=== PATIENT | female | born 1990 | race Caucasian/White ===

== ENCOUNTER 2017-11-11 20:01 | Emergency (ER) | payer SELFPAY ==
[2017-11-11 20:09] VITALS: TEMP 99.6
--- NOTE | 2017-11-11 21:08 | ED PDOC ---
Arrival/HPI - General Chief Complaint: Abdominal Pain Time Seen by Provider: 11/11/17 20:06 Historian: Patient - History of Present Illness Narrative History of Present Illness (Text): 11/11/17 21:06 A 27 year old female, with no significant past medical history, presents to the emergency department with a complaint of 1 day duration right lower quadrant abdominal pain. The patient states that the pain began yesterday and is not associated with any other symptoms. The patient denies fevers, chills, headache , dizziness, nausea, vomiting, diarrhea, bowel/urinary changes, back pain, neck pain, chest pain, shortness of breath, dyspnea on exertion, cough or any other complaint. Time/Duration: Other (Yesterday) Symptom Onset: Sudden Symptom Course: Unchanged Activities at Onset: Rest, Light Context: Home Past Medical History - Provider Review Nursing Documentation Reviewed: Yes - Infectious Disease Hx of Infectious Diseases: None - Tetanus Immunization Tetanus Immunization: Up to Date - Past Medical History Past Medical History: No Previous - Cardiac Hx Cardiac Disorders: No - Pulmonary Hx Respiratory Disorders: No - Neurological Hx Neurological Disorder: No - HEENT Hx HEENT Disorder: No - Renal Hx Renal Disorder: No - Endocrine/Metabolic Hx Endocrine Disorders: No - Hematological/Oncological Hx Blood Disorders: No - Integumentary Hx Dermatological Disorder: No - Musculoskeletal/Rheumatological Hx Musculoskeletal Disorders: No - Gastrointestinal Hx Gastrointestinal Disorders: No - Genitourinary/Gynecological Hx Genitourinary Disorders: Yes Hx Urinary Tract Infection: Yes - Psychiatric Hx Psychophysiologic Disorder: Yes Hx Depression: Yes Hx Substance Use: No - Surgical History Hx Tonsillectomy: Yes - Anesthesia Hx Anesthesia: No Hx Anesthesia Reactions: No Hx Malignant Hyperthermia: No - Suicidal Assessment Feels Threatened In Home Enviroment: No Family/Social History - Physician Review Nursing Documentation Reviewed: Yes Family/Social History: No Known Family HX Smoking Status: Current Some Days Smoker Hx Alcohol Use: Yes Frequency of alcohol use: Socially Hx Substance Use: No Hx Substance Use Treatment: No Allergies/Home Meds Allergies/Adverse Reactions: Allergies No Known Allergies Allergy (Verified 06/13/13 22:34) Review of Systems - Physician Review All systems were reviewed & negative as marked: Yes - Review of Systems Constitutional: absent: Fevers, Night Sweats Respiratory: absent: SOB, Cough Cardiovascular: absent: Chest Pain, ELLIOTT Gastrointestinal: Abdominal Pain (Right lower quadrant abdominal pain). absent : Stool Changes, Diarrhea, Nausea, Vomiting Genitourinary Female: absent: Urine Output Changes Musculoskeletal: absent: Back Pain, Neck Pain Neurological: absent: Headache, Dizziness Physical Exam Vital Signs Reviewed: Yes Vital Signs Temp Pulse Resp BP Pulse Ox 11/12/17 00:36 82 18 99 11/11/17 23:24 71 18 124/61 97 11/11/17 20:02 99.6 F 90 16 131/87 99 Temperature: Afebrile Blood Pressure: Normal Pulse: Regular Respiratory Rate: Normal Appearance: Positive for: Well-Appearing, Non-Toxic, Comfortable Pain Distress: None Mental Status: Positive for: Alert and Oriented X 3 - Systems Exam Head: Present: Atraumatic, Normocephalic Pupils: Present: PERRL Extroacular Muscles: Present: EOMI Conjunctiva: Present: Normal Mouth: Present: Moist Mucous Membranes Neck: Present: Normal Range of Motion Respiratory/Chest: Present: Clear to Auscultation, Good Air Exchange. No: Respiratory Distress, Accessory Muscle Use Cardiovascular: Present: Regular Rate and Rhythm, Normal S1, S2. No: Murmurs Abdomen: Present: Tenderness (Right lower quadrant tenderness.). No: Distention , Peritoneal Signs Back: Present: Normal Inspection Upper Extremity: Present: Normal Inspection. No: Cyanosis, Edema Lower Extremity: Present: Normal Inspection. No: Edema Neurological: Present: GCS=15, CN II-XII Intact, Speech Normal Skin: Present: Warm, Dry, Normal Color. No: Rashes Psychiatric: Present: Alert, Oriented x 3, Normal Insight, Normal Concentration Medical Decision Making ED Course and Treatment: 11/11/17 21:09 Impression: A 27 year old female presents to the emergency department with 1 day duration right lower quadrant abdominal pain. Plan: -- Transvaginal Ultrasound -- Urinalysis -- Labs -- Reassess and disposition Progress Notes: EXAM: US Pelvis Complete, Transabdominal. US Pelvis, Transvaginal. Dictated and Authenticated by: Eddie Waite MD 11/11/2017 9:23 PM Eastern Time ([place] & [place]) IMPRESSION: Normal pelvic ultrasound. EXAM: CT Abdomen and Pelvis With Intravenous Contrast Dictated and Authenticated by: Eddie Waite MD 11/11/2017 11:30 PM Eastern Time ([place] & [place]) IMPRESSION: 1. There is mild thickening of the right ureter which can be seen with urinary tract infections. Correlation with urinalysis would be helpful. 2. Recently ruptured right ovarian cyst or follicle. 11/12/17 00:14 On re-evaluation, patient feels better and is in no acute distress. I have discussed the results and plan with the patient, who expresses understanding. Patient in agreement with plan to be discharged home. Patient is stable for discharge. Patient was instructed to follow up with physician or return if symptoms worsen or new concerning symptoms arise. - Lab Interpretations Lab Results: 11/11/17 21:10 11/11/17 21:10 Lab Results 11/11/17 21:10: Urine Color Light yellow, Urine Appearance Sl cloudy, Urine pH 6.5, Ur Specific [place] 1.015, Urine Protein 100 H, Urine Glucose (UA) Negative , Urine Ketones Negative, Urine Blood Moderate H, Urine Nitrate Negative, Urine Bilirubin Negative, Urine Urobilinogen 1.0 H, Ur Leukocyte Esterase Large H, Urine RBC 5 - 10, Urine WBC 15 - 20, Ur Epithelial Cells 0 - 2, Urine Bacteria Mod 11/11/17 21:10: Sodium 141, Potassium 3.7, Chloride 102, Carbon Dioxide 33, Anion Gap 10, BUN 14, Creatinine 0.7, Est GFR ( Amer) > 60, Est GFR (Non- Af Amer) > 60, Random Glucose 103, Calcium 9.2, Total Bilirubin 0.8, AST 24, ALT 42, Alkaline Phosphatase 40, Total Protein 7.1, Albumin 4.2, Globulin 2.9, Albumin/Globulin Ratio 1.5 11/11/17 21:10: WBC 12.9 H, RBC 4.23, Hgb 13.0, Hct 39.5, MCV 93.4, MCH 30.7, MCHC 32.9, RDW 12.9, Plt Count 321, MPV 9.0, Gran % 70.7 H, Lymph % (Auto) 15.8 L, [place] % (Auto) 12.7 H, Eos % (Auto) 0.7 L, Baso % (Auto) 0.1, Gran # 9.11 H, Lymph # (Auto) 2.0, [place] # (Auto) 1.6 H, Eos # (Auto) 0.1, Baso # (Auto) 0.01 - RAD Interpretation Radiology Orders: 11/11/17 20:31 TRANSVAGINAL [US] Stat 11/11/17 21:30 ABD & PELVIS IV CONTRAST ONLY [CT] Stat - Medication Orders Current Medication Orders: Discontinued Medications Cephalexin Monohydrate (Keflex) 500 mg PO STAT STA PRN Reason: Protocol Stop: 11/11/17 23:38 Last Admin: 11/12/17 00:17 Dose: 500 mg - Scribe Statement The provider has reviewed the documentation as recorded by the Rebeccaibashley Jain Provider Scribe Attestation: All medical record entries made by the Scribe were at my direction and personally dictated by me. I have reviewed the chart and agree that the record accurately reflects my personal performance of the history, physical exam, medical decision making, and the department course for this patient. I have also personally directed, reviewed, and agree with the discharge instructions and disposition Disposition/Present on Arrival - Present on Arrival Any Indicators Present on Arrival: No History of DVT/PE: No History of Uncontrolled Diabetes: No Urinary Catheter: No History of Decub. 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
[2017-11-11 21:29] LABS: ALB/GLOB RATIO 1.5 (1.1-1.8); ALBUMIN 4.2 g/dL (3.0-4.8); ALT/SGPT 42 U/L (7-56); AST/SGOT 24 U/L (14-36); BLOOD UREA NITROGEN 14 mg/dL (7-21); CALCIUM 9.2 mg/dL (8.4-10.5); GFR AFRICAN-AMERICAN > 60; GFR NON-AFRICAN AMERICAN > 60
[2017-11-11 21:34] LABS: BASO # 0.01 K/mm3 (0.0-2.0); BASO % 0.1 % (0.0-3.0); EOS # 0.1 (0.0-0.7); EOS % 0.7 % (1.5-5.0); GRAN # 9.11 (1.4-6.5); GRAN % 70.7 % (50.0-68.0); LYMPH % 15.8 % (22.0-35.0); MEAN CELL VOLUME 93.4 fl (80.0-105.0); MEAN CORPUSCULAR HEMOGLOBIN 30.7 pg (25.0-35.0); MEAN CORPUSCULAR HGB CONC 32.9 g/dl (31.0-37.0); MONO # 1.6 (0.1-0.6); MONO % 12.7 % (1.0-6.0); RBC 4.23 10^6/uL (3.5-6.1); RED CELL DISTRIBUTION WIDTH 12.9 % (11.5-14.5); WHITE BLOOD COUNT 12.9 10^3/ul (4.5-11.0)
[2017-11-11 21:36] LABS: PH,URINE 6.5 (4.7-8.0); URINE BILIRUBIN NEGATIVE (NEGATIVE); URINE BLOOD MODERATE (NEGATIVE); URINE GLUCOSE (UA) NEGATIVE (NEGATIVE); URINE LEUKOCYTE ESTERASE LARGE Leu/uL (NEGATIVE); URINE PROTEIN 100 mg/dL (<30 mg/dL)
[2017-11-11 21:37] LABS: URINE APPEARANCE SL CLOUDY (CLEAR); URINE COLOR LIGHT YELLOW (YELLOW)
[2017-11-11 21:50] LABS: URINE BACTERIA MOD (NEG); URINE EPITHELIAL CELLS 0 - 2 /hpf (0-5); URINE WBC 15 - 20 /hpf (0-6)
[2017-11-11] MEDS ORDERED: Iohexol 350 MG/100 ML VIAL ONE (22:21)
[2017-11-11 23:24] VITALS: BP 124/61; RESP 18
[2017-11-12 00:37] VITALS: PULSE 82; O2SAT 99
--- NOTE | 2017-11-12 09:37 | CT ---
Date of service: 11/11/2017 PROCEDURE: CT Abdomen and Pelvis with contrast HISTORY: rlq pain COMPARISON: None. TECHNIQUE: Contrast dose: 100 cc of Omni 350 Radiation dose: Total exam DLP = 512 mGy-cm. This CT exam was performed using one or more of the following dose reduction techniques: Automated exposure control, adjustment of the mA and/or kV according to patient size, and/or use of iterative reconstruction technique. FINDINGS: LOWER THORAX: Unremarkable. LIVER: Unremarkable. No gross lesion or ductal dilatation. GALLBLADDER AND BILE DUCTS: Unremarkable. PANCREAS: Unremarkable. No gross lesion or ductal dilatation. SPLEEN: Unremarkable. ADRENALS: Unremarkable. No mass. KIDNEYS AND URETERS: Unremarkable. No hydronephrosis. No solid mass. There is mild mural enhancement of the right renal collecting system and right ureter. This can be seen in urinary tract infections VASCULATURE: Unremarkable. No aortic aneurysm. BOWEL: Unremarkable. No obstruction. No gross mural thickening. APPENDIX: Normal appendix. PERITONEUM: Unremarkable. No free fluid. No free air. LYMPH NODES: Unremarkable. No enlarged lymph nodes. BLADDER: Unremarkable. REPRODUCTIVE: There is a thick-walled irregular collapsing cyst in the right ovary. There is a small amount of free fluid in the cul-de-sac BONES: No acute fracture. OTHER FINDINGS: None. IMPRESSION: There is mild mural enhancement of the right renal collecting system and right ureter. This can be seen in urinary tract infections There is a thick-walled irregular collapsing cyst in the right ovary. There is a small amount of free fluid in the cul-de-sac
--- NOTE | 2017-11-12 11:12 | US ---
Date of service: 11/11/2017 HISTORY: Right lower quadrant pain COMPARISON: None available. TECHNIQUE: Transvaginal pelvic ultrasound was performed. FINDINGS: UTERUS: Measures 8.4 x 4.9 x 5.4 cm. Anteverted, normal in size and appearance. No fibroid or other mass lesion seen. ENDOMETRIUM: Measures 12 mm in diameter. The central endometrial echo complex is normal in appearance. CERVIX: No cervical abnormality identified. RIGHT OVARY: Measures 4.3 x 2.3 x 2.0 cm. No solid mass. Normal flow. LEFT OVARY: Measures 2.3 x 1.7 x 1.7 cm. No solid mass. Normal flow. FREE FLUID: No significant free fluid noted. OTHER FINDINGS: None. IMPRESSION: Normal pelvic ultrasound. A preliminary report was provided by [employer] services.
== END 2017-11-12 00:36 | disposition home or self-care (01) ==
LOC: ED 20:01
DX: N39.0 Urinary tract infection, site not specified (principal); N83.201 Unspecified ovarian cyst, right side
CPT/HCPCS: 74177; 76830; 80053; 81001; 85025; 87086; 87181; 99283; Q9967

== ENCOUNTER 2018-07-17 16:32 | Emergency (ER) | payer BC, OTHER ==
[2018-07-17 16:58] VITALS: BMI 29.2
[2018-07-17] MEDS ORDERED: Sodium Chloride 0.9% 1,000 ML IV STA ×2 (17:01→19:47)
[2018-07-17 17:28] LABS: BASO # 0.01 K/mm3 (0.0-2.0); BASO % 0.1 % (0.0-3.0); HEMOGLOBIN 13.9 g/dL (12.0-16.0); LYMPH # 0.9 (1.2-3.4); MEAN CELL VOLUME 93.3 fl (80.0-105.0); MEAN CORPUSCULAR HEMOGLOBIN 30.1 pg (25.0-35.0); MEAN CORPUSCULAR HGB CONC 32.3 g/dl (31.0-37.0); MEAN PLATELET VOLUME 8.8 fl (7.0-11.0); MONO # 1.1 (0.1-0.6); MONO % 5.8 % (1.0-6.0); PLATELET COUNT 329 10^3/uL (120.0-450.0); RBC 4.62 10^6/uL (3.5-6.1); RED CELL DISTRIBUTION WIDTH 12.9 % (11.5-14.5)
[2018-07-17 17:38] LABS: INR 1.19; PARTIAL THROMBOPLASTIN TIME 28.3 Seconds (26.9-38.3); PROTHROMBIN TIME 13.2 SECONDS (9.4-12.5)
[2018-07-17 17:43] LABS: LYMPHOCYTE 6 % (22.0-35.0); MONOCYTE 7 % (1.0-6.0); NEUTROPHIL 87 % (50.0-70.0)
[2018-07-17 17:44] LABS: PLATELET ESTIMATE NORMAL (NORMAL)
[2018-07-17 18:01] LABS: ALB/GLOB RATIO 1.4 (1.1-1.8); ALBUMIN 4.7 g/dL (3.0-4.8); ALT/SGPT 20 U/L (7-56); AST/SGOT 29 U/L (14-36); BLOOD UREA NITROGEN 19 mg/dL (7-21); CALCIUM 9.4 mg/dL (8.4-10.5); GFR NON-AFRICAN AMERICAN > 60; LIPASE 16 U/L (23-300)
--- NOTE | 2018-07-17 18:04 | US ---
Date of service: 07/17/2018 HISTORY: Vaginal bleeding, pain. LMP 07/17/2018. Regular cycles by history. COMPARISON: 11/11/2017. Pelvic ultrasound TECHNIQUE: Transvaginal only. Real -time technique with 2D, duplex and color Doppler FINDINGS: UTERUS: Measures 4.4 x 5.3 x 7.4 cm. Normal in size and appearance. No fibroid or other mass lesion seen. ENDOMETRIUM: Measures 7.5 mm in diameter. No ultrasound findings to suggest gestational sac, fluid, debris, mass or polyp or other pathologic process within the endometrium. CERVIX: Trace fluid in the endometrial canal. RIGHT OVARY: Measures 3.5 x 1.7 x 3.1 cm. No solid mass. Normal flow. Multiple subcentimeter follicles. LEFT OVARY: Measures 1.8 x 2.9 x 3.1 cm. No solid mass. Normal flow. Multiple subcentimeter follicles. FREE FLUID: No significant free fluid noted. OTHER FINDINGS: None. IMPRESSION: Trace fluid in the cervix, cervical canal. Findings are likely bladder hemorrhagic products. Unremarkable uterus, endometrial echo complex and adnexa.
[2018-07-17 18:46] VITALS: TEMP 97.7
[2018-07-17 18:54] LABS: URINE BILIRUBIN NEGATIVE (NEGATIVE); URINE BLOOD NEGATIVE (NEGATIVE); URINE GLUCOSE (UA) NEGATIVE (NEGATIVE); URINE LEUKOCYTE ESTERASE NEGATIVE Leu/uL (NEGATIVE); URINE PROTEIN 30 mg/dL (<30 mg/dL); URINE UROBILINOGEN 0.2 E.U./dL (<1 E.U./dL)
[2018-07-17 18:55] LABS: URINE APPEARANCE CLEAR (CLEAR); URINE COLOR YELLOW (YELLOW)
[2018-07-17 18:58] LABS: URINE BACTERIA TRACE /hpf; URINE RBC 0 - 2 /hpf (0-2)
[2018-07-17] MEDS ORDERED: Iohexol 350 MG/100 ML VIAL ONE (20:22)
--- NOTE | 2018-07-17 21:57 | ED PDOC ---
Arrival/HPI - General Chief Complaint: GI Problem Time Seen by Provider: 07/17/18 16:37 Historian: Patient - History of Present Illness Narrative History of Present Illness (Text): 28 year old female was past medical history of ovarian cysts and painful periods presents to the emergency department complaining of lower abdominal pain and vomiting x 1 day. Patient states these symptoms are typical during her menstrual cycle however today was more severe prompting visit to the emergency department. Patient has been unable to tolerate po secondary to nausea and has therefore been feeling intermittently lightheaded. Currently menstruating. Denies fever, chills, diarrhea, chest pain, shortness of breath, vision changes, neck pain or stiffness, hematemesis, melena, urinary symptoms, or any other associated complaints. Past Medical History - Provider Review Nursing Documentation Reviewed: Yes - Infectious Disease Hx of Infectious Diseases: None - Tetanus Immunization Tetanus Immunization: Up to Date - Past Medical History Past Medical History: No Previous - Cardiac Hx Cardiac Disorders: No - Pulmonary Hx Respiratory Disorders: No - Neurological Hx Neurological Disorder: No - HEENT Hx HEENT Disorder: No - Renal Hx Renal Disorder: No - Endocrine/Metabolic Hx Endocrine Disorders: No - Hematological/Oncological Hx Blood Disorders: No - Integumentary Hx Dermatological Disorder: No - Musculoskeletal/Rheumatological Hx Musculoskeletal Disorders: No - Gastrointestinal Hx Gastrointestinal Disorders: No - Genitourinary/Gynecological Hx Genitourinary Disorders: Yes Hx Urinary Tract Infection: Yes - Psychiatric Hx Psychophysiologic Disorder: Yes Hx Depression: Yes Hx Substance Use: No - Surgical History Hx Tonsillectomy: Yes - Anesthesia Hx Anesthesia: No Hx Anesthesia Reactions: No Hx Malignant Hyperthermia: No - Suicidal Assessment Feels Threatened In Home Enviroment: No Family/Social History - Physician Review Nursing Documentation Reviewed: Yes Family/Social History: No Known Family HX Smoking Status: Current Some Days Smoker Hx Alcohol Use: Yes Frequency of alcohol use: Few days per week Hx Substance Use: No Hx Substance Use Treatment: No Allergies/Home Meds Allergies/Adverse Reactions: Allergies No Known Allergies Allergy (Verified 07/17/18 16:58) Review of Systems - Review of Systems Constitutional: Normal. absent: Fevers Eyes: Normal. absent: Vision Changes ENT: Normal. absent: Sore Throat, Sinus Congestion Respiratory: Normal. absent: SOB, Cough Cardiovascular: Normal. absent: Chest Pain, Palpitations Gastrointestinal: Abdominal Pain, Nausea, Vomiting Genitourinary Female: Vaginal Bleeding. absent: Dysuria, Frequency, Hematuria Musculoskeletal: Back Pain. absent: Arthralgias, Neck Pain Skin: Normal. absent: Rash, Pruritis Neurological: Normal. absent: Headache, Dizziness Endocrine: Normal Hemo/Lymphatic: Normal Psychiatric: Normal Physical Exam Vital Signs Reviewed: Yes Vital Signs Temp Pulse Resp BP Pulse Ox 07/17/18 18:20 97.7 F 81 20 119/66 97 07/17/18 17:14 98.7 F 79 18 116/73 97 Temperature: Afebrile Blood Pressure: Normal Pulse: Regular Respiratory Rate: Normal Appearance: Positive for: Well-Appearing, Non-Toxic, Comfortable Pain Distress: None Mental Status: Positive for: Alert and Oriented X 3 - Systems Exam Head: Present: Atraumatic, Normocephalic Pupils: Present: PERRL Extroacular Muscles: Present: EOMI Conjunctiva: Present: Normal Mouth: Present: Moist Mucous Membranes Neck: Present: Normal Range of Motion. No: Meningeal Signs, MIDLINE TENDERNESS, Paraspinal Tenderness Respiratory/Chest: Present: Clear to Auscultation, Good Air Exchange. No: Respiratory Distress, Accessory Muscle Use Cardiovascular: Present: Regular Rate and Rhythm, Normal S1, S2, Peripheal Pulses Present Abdomen: Present: Tenderness (RLQ, suprapubic, LLQ), Normal Bowel Sounds. No: Distention, Peritoneal Signs, Rebound, Guarding Back: Present: Normal Inspection. No: CVA Tenderness, Paraspinal Tenderness Upper Extremity: Present: Normal Inspection, Normal ROM, NORMAL PULSES, Neurovascularly Intact, Capillary Refill < 2s. No: Cyanosis, Edema, Temperature Abnormalties Lower Extremity: Present: Normal Inspection, NORMAL PULSES, Normal ROM, Neurovascularly Intact, Capillary Refill < 2 s. No: Edema, Temperature Abnormalties Neurological: Present: GCS=15, CN II-XII Intact, Speech Normal, Motor Func Grossly Intact, Normal Sensory Function, Gait Normal Skin: Present: Warm, Dry, Normal Color. No: Rashes Psychiatric: Present: Alert, Oriented x 3, Normal Insight, Normal Concentration, Normal Affect, Normal Mood Medical Decision Making ED Course and Treatment: Initial Plan: * CBC, CMP * Lipase * Coags * Zofran * Pepcid * IVF * Transvaginal ultrasound Bloodwork reviewed, leukocytosis at 18. will get CT abd/pelvis to rule out intraabdominal pathology Ultrasound negative for acute pelvic pathology. CT shows enteritis. Pt reports complete resolution of symptoms. Asking for discharge home. Abdomen continues to be soft, nontender. No CVA tenderness. Pt is well appearing, UA clear. Will discharge home and advise supportive care with PMD followup. Diagnostic testing results and plan of care discussed with patient. Strict instructions given regarding prescription use, importance of followup, and signs/symptoms to return to ER including worsening pain, intractable vomiting, or any other new/worsening symptoms. Pt verbalized understanding of discussion. Patient is A&Ox3, ambulating with steady gait, with vital signs stable for discharge. - Lab Interpretations Lab Results: PT 13.2 SECONDS (9.4-12.5) H 07/17/18 17:20 INR 1.19 07/17/18 17:20 APTT 28.3 Seconds (26.9-38.3) 07/17/18 17:20 Total Bilirubin 0.4 mg/dL (0.2-1.3) 07/17/18 17:20 AST 29 U/L (14-36) 07/17/18 17:20 ALT 20 U/L (7-56) 07/17/18 17:20 Alkaline Phosphatase 58 U/L (38-126) 07/17/18 17:20 Total Protein 8.0 g/dL (5.8-8.3) 07/17/18 17:20 Albumin 4.7 g/dL (3.0-4.8) 07/17/18 17:20 Globulin 3.3 gm/dL 07/17/18 17:20 Albumin/Globulin Ratio 1.4 (1.1-1.8) 07/17/18 17:20 Lipase 16 U/L (23-300) L 07/17/18 17:20 Urine Color Yellow (YELLOW) 07/17/18 18:50 Urine Appearance Clear (CLEAR) 07/17/18 18:50 Urine pH 7.0 (4.7-8.0) 07/17/18 18:50 Ur Specific [place] 1.025 (1.005-1.035) 07/17/18 18:50 Urine Protein 30 mg/dL (<30 mg/dL) H 07/17/18 18:50 Urine Glucose (UA) Negative mg/dL (NEGATIVE) 07/17/18 18:50 Urine Ketones 15 mg/dL (NEGATIVE) H 07/17/18 18:50 Urine Blood Negative (NEGATIVE) 07/17/18 18:50 Urine Nitrate Negative (NEGATIVE) 07/17/18 18:50 Urine Bilirubin Negative (NEGATIVE) 07/17/18 18:50 Urine Urobilinogen 0.2 E.U./dL (<1 E.U./dL) 07/17/18 18:50 Ur Leukocyte Esterase Negative [place]/uL (NEGATIVE) 07/17/18 18:50 Urine RBC 0 - 2 /hpf (0-2) 07/17/18 18:50 Urine WBC None /hpf (0-6) 07/17/18 18:50 Ur Epithelial Cells 3 - 4 /hpf (0-5) 07/17/18 18:50 Urine Bacteria Trace /hpf (NONE) 07/17/18 18:50 07/17/18 17:20 07/17/18 17:20 Lab Results 07/17/18 18:50: Urine Color Yellow, Urine Appearance Clear, Urine pH 7.0, Ur Specific [place] 1.025, Urine Protein 30 H, Urine Glucose (UA) Negative, Urine Ketones 15 H, Urine Blood Negative, Urine Nitrate Negative, Urine Bilirubin Negative, Urine Urobilinogen 0.2, Ur Leukocyte Esterase Negative, Urine RBC 0 - 2, Urine WBC None, Ur Epithelial Cells 3 - 4, Urine Bacteria Trace 07/17/18 17:20: Sodium 143, Potassium 3.9, Chloride 105, Carbon Dioxide 28, Anion Gap 14, BUN 19, Creatinine 0.5 L, Est GFR ( Amer) > 60, Est GFR (Non-Af Amer) > 60, Random Glucose 93, Calcium 9.4, Magnesium 1.8, Total Bilirubin 0.4, AST 29, ALT 20, Alkaline Phosphatase 58, Total Protein 8.0, Albumin 4.7, Globulin 3.3, Albumin/Globulin Ratio 1.4, Lipase 16 L 07/17/18 17:20: PT 13.2 H, INR 1.19, APTT 28.3 07/17/18 17:20: WBC 18.0 H, RBC 4.62, Hgb 13.9, Hct 43.1, MCV 93.3, MCH 30.1, MCHC 32.3, RDW 12.9, Plt Count 329, MPV 8.8, Neut % (Auto) 89.1 H, Lymph % (Auto) 5.0 L, [place] % (Auto) 5.8, Eos % (Auto) 0.0 L, Baso % (Auto) 0.1, Lymph # (Auto) 0.9 L, [place] # (Auto) 1.1 H, Eos # (Auto) 0.0, Baso # (Auto) 0.01, Absolute Neuts (auto) 16.06 H, Neutrophils % (Manual) 87 H, Lymphocytes % (Manual) 6 L, Monocytes % (Manual) 7 H, Platelet Evaluation Normal I have reviewed the lab results: Yes - RAD Interpretation Narrative RAD Interpretations (Text): 07/17/18 22:17 Transvaginal Ultrasound: Impression: Trace fluid in the cervix, cervical canal. Findings are likely uterine hemorrhagic products. Unremarkable uterus, endometrial echo complex and adnexa. CT Abd/Pelvis with IV Contrast: FINDINGS: LUNG BASES: The lung bases appear clear. No pleural effusions are seen. LIVER: Unremarkable. GALLBLADDER AND BILE DUCTS: The gallbladder appears within normal limits. No radioopaque gallstones are seen. No biliary ductal dilatation is evident. PANCREAS: Unremarkable. SPLEEN: Unremarkable. ADRENAL GLANDS: Unremarkable. KIDNEYS, URETERS, AND BLADDER: The kidneys appear within normal limits. There is no hydronephrosis or hydroureter. No urinary calculi are seen. The urinary bladder appeared normal in size and configuration. STOMACH AND BOWEL: Mucosal wall thickening and fluid in the lumen are seen involving the duodenum and small intestinal tract compatible with duodenitis and diffuse enteritis. Inflammatory or infectious etiologies are thought most likely. No evidence of bowel obstruction. No evidence suggesting colitis. APPENDIX: No evidence of acute appendicitis on CT examination. PERITONEUM: No free fluid. No free air. LYMPH NODES: No lymphadenopathy is evident. REPRODUCTIVE: Unremarkable as visualized. VASCULATURE: No evidence of abdominal aortic aneurysm. BONES: No aggressive appearing osseous lesion. No acute osseous pathology evident. IMPRESSION: 1. Evidence of duodenitis and diffuse enteritis. Radiology Orders: 07/17/18 17:01 TRANSVAGINAL [US] Stat 07/17/18 18:01 ABD & PELVIS IV CONTRAST ONLY [CT] Stat [employer] T[employer]: Radiologist - Medication Orders Current Medication Orders: Discontinued Medications Sodium Chloride (Sodium Chloride 0.9%) 1,000 mls @ 999 mls/hr IV .Q1H1M STA Stop: 07/17/18 18:01 Last Admin: 07/17/18 17:27 Dose: 999 mls/hr eMAR Start Stop Document 07/17/18 17:27 SRE (Rec: 07/17/18 17:28 SRE [id number]) Intravenous Solution Start Date 07/17/18 Start Time 17:30 End Date 07/17/18 End time 18:30 Total Infusion Time 60 Sodium Chloride (Sodium Chloride 0.9%) 1,000 mls @ 999 mls/hr IV .Q1H1M STA Stop: 07/17/18 20:47 Last Admin: 07/17/18 19:53 Dose: 999 mls/hr eMAR Start Stop Document 07/17/18 19:53 CNR (Rec: 07/17/18 19:54 CNR [id number]) Intravenous Solution Start Date 07/17/18 Start Time 19:53 End Date 07/17/18 End time 20:53 Total Infusion Time 60 Ketorolac Tromethamine (Toradol) 30 mg IVP STAT STA Stop: 07/17/18 17:01 Last Admin: 07/17/18 18:42 Dose: 30 mg MAR Pain Assessment Document 07/17/18 18:42 SRE (Rec: 07/17/18 18:44 SRE [id number]) Pain Reassessment Is this a pain reassessment? Yes IVP Administration Document 07/17/18 18:42 SRE (Rec: 07/17/18 18:44 SRE [id number]) Charges for Administration # of IVP Administrations 1 Ondansetron HCl (Zofran Inj) 4 mg IVP STAT STA Stop: 07/17/18 17:01 Last Admin: 07/17/18 17:28 Dose: 4 mg IVP Administration Document 07/17/18 17:28 SRE (Rec: 07/17/18 17:28 SRE [id number]) Charges for Administration # of IVP Administrations 1 Disposition/Present on Arrival - Present on Arrival Any Indicators Present on Arrival: No History of DVT/PE: No History of Uncontrolled Diabetes: No Urinary Catheter: No History of Decub. Ulcer: No History Surgical Site Infection Following: None - Disposition Have Diagnosis and Disposition been Completed?: Yes Diagnosis: Enteritis, Menstrual cramps Disposition: HOME/ ROUTINE Disposition Time: 21:45 Condition: CRITICAL Discharge Instructions (ExitCare): Viral Gastroenteritis, Adult (DC), Menstrual Cramps (DC) Additional Instructions: Increase fluids Rest, no strenuous activity Zofran every 8 hours as needed Pepcid every 12 hours as needed Bentyl every 12 hours as needed Followup with [place] operator within 2 days Followup with primary doctor within 2 days Return to ER with any new/worsening symptoms Prescriptions: Dicyclomine [Dicyclomine HCl] 10 mg PO Q8H PRN #21 cap PRN Reason: cramping Famotidine [Pepcid] 20 mg PO Q12 PRN #14 tab PRN Reason: Indigestion Ondansetron HCl [Zofran] 4 mg PO Q8 #9 tablet Referrals: [facility] [Outside] - Follow up with primary Lexy Ackerman MD [Staff Provider] - Follow up with primary Madhuri Hernandez MD [Medical Doctor] - Follow up with primary Forms: [email or web address] ([place]), WORK NOTE
[2018-07-17 22:07] VITALS: BP 122/79; PULSE 72; RESP 19; O2SAT 100
--- NOTE | 2018-07-18 09:09 | CT ---
Date of service: 07/17/2018 PROCEDURE: CT Abdomen and Pelvis with contrast HISTORY: lower abdominal pain, r/o appendicitis COMPARISON: 11/11/2017. TECHNIQUE: CT scan of the abdomen and pelvis was performed after administration of intravenous contrast. Oral contrast was not administered. Coronal and sagittal reformatted images were obtained. Contrast dose: 100 mL Omnipaque 350 Radiation dose: Total exam DLP = 845.06 mGy-cm. This CT exam was performed using one or more of the following dose reduction techniques: Automated exposure control, adjustment of the mA and/or kV according to patient size, and/or use of iterative reconstruction technique. FINDINGS: LOWER THORAX: The visualized lungs are clear. LIVER: Normal in size with homogeneous enhancement. No gross lesion or ductal dilatation. GALLBLADDER AND BILE DUCTS: Well distended. No calcified gallstones, wall thickening or pericholecystic fluid. PANCREAS: Normal in size with homogeneous enhancement. No gross lesion or ductal dilatation. SPLEEN: Normal in size and appearance. ADRENALS: No discrete nodule. KIDNEYS AND URETERS: Normal in size with homogeneous enhancement. No hydronephrosis. No solid mass. VASCULATURE: No aortic aneurysm. There are no aortic atherosclerotic calcifications or mural plaque present. BOWEL: Evaluation of the bowel is limited in the absence of oral contrast. The small bowel loops are normal in caliber. There is mild gaseous distension of the sigmoid colon otherwise the colon is grossly unremarkable. No bowel wall thickening or obstruction. APPENDIX: Normal appendix. PERITONEUM: No free fluid. No free air. LYMPH NODES: No enlarged lymph nodes. BLADDER: Well distended and normal in appearance. REPRODUCTIVE: The uterus is normal in size. BONES: No acute fracture. Within normal limits for the patient's age. OTHER FINDINGS: None. IMPRESSION: No acute abdominal or pelvic abnormality. Specifically, no CT evidence for acute appendicitis. Mild gaseous distension of the sigmoid colon. A preliminary report was provided by [employer].
== END 2018-07-17 22:06 | disposition home or self-care (01) ==
LOC: ED 16:32
DX: K52.9 Noninfective gastroenteritis and colitis, unspecified (principal); N94.6 Dysmenorrhea, unspecified
CPT/HCPCS: 74177; 76830; 80053; 81001; 81025; 83690; 83735; 85025; 85610; 85730; 87086; 87181; 96361; 96374; 96375; 99285; J1885; J2405; J7030; Q9967